=== PATIENT | female | born 1965 | race Caucasian/White ===

== ENCOUNTER 2018-02-19 12:15 | Day surgery (SDC) | payer OTHER ==
[2018-02-10 18:22] VITALS: BMI 30.9
[2018-02-19] MEDS ORDERED: LIDOCAINE HCL 2% (20ML MULTI-DOSE VIAL) NR ONE (13:17)
[2018-02-19] MEDS ORDERED: PROPOFOL 20 ML ONE ×2 (13:23)
[2018-02-19] MEDS ORDERED: MIDAZOLAM HCL 2 MG/2 ML SINGLE DOSE VIAL ONE (13:23)
[2018-02-19] MEDS ORDERED: SUCCINYLCHOLINE CHLORIDE 200 MG/10 ML VIAL ONE (13:23)
[2018-02-19] MEDS ORDERED: ONDANSETRON 4 MG/2 ML VIAL ONE (13:53)
[2018-02-19] MEDS ORDERED: KETOROLAC TROMETHAMINE 30 MG/1 ML VIAL ONE (13:53)
[2018-02-19] MEDS ORDERED: ceFAZolin SODIUM 1 GM VIAL ONE (13:53)
[2018-02-19] MEDS ORDERED: DEXAMETHASONE SOD PHOSPHATE 4 MG/1 ML VIAL ONE (13:53)
[2018-02-19] MEDS ORDERED: oxyCODONE HCL 5 MG TABLET PO PRN ×2 (14:41)
[2018-02-19] MEDS ORDERED: ONDANSETRON 4 MG/2 ML VIAL IVPUSH PRN (14:41)
[2018-02-19] MEDS ORDERED: ACETAMINOPHEN 325 MG TABLET (FP) PO PRN (14:41)
[2018-02-19 14:59] VITALS: TEMP 97.7
[2018-02-19 15:14] VITALS: BP 136/76
[2018-02-19 15:15] VITALS: PULSE 72
--- NOTE | 2018-02-20 09:24 | OP ---
DATE OF OPERATION: 02/19/2018 PREOPERATIVE DIAGNOSES: 1. Right long finger mass. 2. 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 POSTOPERATIVE DIAGNOSES: 1. Right long finger mass. 2. 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 OPERATIVE PROCEDURE: 1. Right long finger mass excision. 2. Right long finger distal interphalangeal joint debridement and spur excision. SURGEON: Samuel Claros MD ANESTHESIA: Local with sedation. COMPLICATIONS: None. ESTIMATED BLOOD LOSS: Minimal. INDICATION FOR PROCEDURE: The patient is a 53-year-old female with the above finding indicated for operative treatment. Risks, benefits, alternatives were discussed with the patient at length. Proper informed consent was obtained. PROCEDURE: After proper identification of patient and correct operative site patient was brought to the operating room and placed supine on the operating table, prominences well padded. Sedation was given by the anesthesiologist. Local anesthesia was given with 2% lidocaine. Right upper extremity was prepped and draped in the usual sterile fashion. Well-padded tourniquet was placed over the sterile prep. Esmarch bandage used to exsanguinate the right upper extremity. Tourniquet was inflated to 250 mmHg. An L-shaped incision was made over the distal interphalangeal joint and the mass. The incision was taken sharply through the skin, with blunt and sharp dissection through subcutaneous tissues. The mass was found to be a mucoid cyst emanating from the distal interphalangeal joint. It was excised in whole and traced back to the distal interphalangeal joint. Sterile and germinal matrixes were carefully protected. The mass was excised in whole from the distal interphalangeal joint. The distal interphalangeal joint was opened and debrided. Small spur was excised. Wound was irrigated with saline and repaired with a 5-0 nylon suture. Sterile dressings were applied. Patient was reversed from anesthesia and brought to recovery in stable condition. She tolerated the procedure well. Bubba [id number]
--- NOTE | 2018-02-21 11:18 | PATH ---
Surgical Pathology Report Patient Name: WESLEY AGUILAR [facility]. Rec. #: [id number] /Age/Gender: 1965 (Age: 53) / F Account: [id number] Location: [facility] AMBUL[facility]ORY Taken: 02/19/2018 Received: 02/19/2018 Reported: 02/21/2018 Physicians: Samuel Claros M.D. Specimen(s) Received RIGHT HAND MASS Clinical History Right third finger mass Final Diagnosis HAND, RIGHT, MASS, EXCISION: DENSE FIBROCONNECTIVE TISSUE WITH DEGENERATIVE CHANGES CONSISTENT WITH MUCOUS/ GANGLION CYST. Electronically Signed Anju Correa M.D. Gross Description Received in formalin labeled "right hand mass," is a 0.6 cm in greatest dimension [place] fragment of soft tissue. The specimen is submitted in toto in one cassette. /02/20/2018 saudi02/20/2018
== END 2018-02-19 15:25 | disposition home or self-care (01) ==
LOC: FASU 12:15
PROVIDERS: ATTEND Orthopaedic Surgery Hand Surgery
PROC: 0LB70ZZ Excision of Right Hand Tendon, Open Approach (ICD-10-PCS; principal; 2018-02-19 14:02)
DX: D21.11 Benign neoplasm of connective and other soft tissue of right upper limb, including shoulder (principal); M19.041 Primary osteoarthritis, right hand
CPT/HCPCS: 84703; 88304-TC

== ENCOUNTER 2021-08-30 08:47 | Day surgery (SDC) | payer OTHER ==
[2021-08-30] MEDS ORDERED: MIDAZOLAM HCL 2 MG/2 ML SINGLE DOSE VIAL ONE (10:05)
[2021-08-30] MEDS ORDERED: KETAMINE HCL 200 MG/20 ML VIAL ONE (10:28)
[2021-08-30] MEDS ORDERED: PROPOFOL 20 ML ONE (10:51)
[2021-08-30 12:11] VITALS: BP 131/74; PULSE 71; TEMP 97.7
== END 2021-08-30 12:30 | disposition home or self-care (01) ==
LOC: FASU 08:47
PROVIDERS: ATTEND Orthopaedic Surgery Hand Surgery
PROC: 0LB70ZZ Excision of Right Hand Tendon, Open Approach (ICD-10-PCS; 2021-08-30)
PROC: 0LB70ZZ Excision of Right Hand Tendon, Open Approach (ICD-10-PCS; principal; 2021-08-30 10:39)
DX: D48.1 Neoplasm of uncertain behavior of connective and other soft tissue (principal); M67.441 Ganglion, right hand; R22.31 Localized swelling, mass and lump, right upper limb
CPT/HCPCS: 88304-TC; 94760